=== PATIENT | male | born 1975 | race American Indian/Alaskan Native ===

== ENCOUNTER 2022-01-23 14:03 | Observation (INO) | payer MEDICARE, OTHER ==
[2022-01-23] MEDS ORDERED: levETIRAcetam 1000 MG/NS 0.75% 1,000 MG/100 ML BAG IV ONE (15:45)
[2022-01-23] MEDS ORDERED: MIDAZOLAM 2 MG/2 ML INJ IV ONE (15:45)
[2022-01-23] MEDS ORDERED: SODIUM CHLORIDE 0.9% 1000 ML IV SOLN IV ONE (15:45)
[2022-01-23] MEDS ORDERED: ACETAMINOPHEN 650 MG RECT SUPP PR PRN (15:47)
[2022-01-23] MEDS ORDERED: cefTRIAXone/NS 1 GM/50 ML 1 GM/50 ML BAG IV ONE (15:47)
[2022-01-23] MEDS ORDERED: ACETAMINOPHEN 650 MG RECT SUPP PR ONE (15:49)
--- NOTE | 2022-01-23 15:49 | Emergency Department Report ---
ED General Adult HPI - General Chief complaint: Seizure Stated complaint: SEIZURE Time Seen by Provider: 01/23/22 15:04 Source: EMS ( EMS documentation not available at time of chart dictation ), RN notes reviewed Mode of arrival: Stretcher Limitations: Other (Cerebral palsy. Poor historian) - History of Present Illness Initial comments: The patient was evaluated in the emergency department for symptoms described in the history of present illness. He/she was evaluated in the context of the global COVID-19 pandemic, which necessitated consideration that the patient might be at risk for infection with the virus that causes COVID-19. Institutional protocols and algorithms that pertain to the evaluation of patients at risk for COVID-19 are in a state of rapid change based on information released by regulatory bodies including the CDC and federal and state organizations. These policies and algorithms were followed during the patient's care in the emergency department. Please note that these policies, procedures and recommendations changed on a rapid basis. This is a 46-year-old gentleman. He reportedly has a history of cerebral palsy and seizures. He is reportedly brought to the hospital by EMS for possible seizures. Currently, friends and family not available at the bedside to give collateral information or additional history. The patient himself is awake, and making nonsensical sounds. He is noted to be moving his upper and lower extremities, but does have limited mobility in his upper and lower extremities, secondary to cerebral palsy. As per verbal report from nursing team, patient either missed medication for seizures, or prescription medications were not filled, and the patient may have had a seizure. The nature of the seizure, duration, and associated symptoms are not known because the patient cannot describe the symptoms. He is not accompanied by friends or family at this time for collateral information or additional history. I called up the listed phone number ([phone]) in the demographics to at tempt to obtain collateral information. Nobody answered, voicemail full, unable to leave voicemail for call back -: unknown Severity scale (0 -10): 0 - Related Data Allergies Allergy/AdvReac Type Severity Reaction Status Date / Time No Known Allergies Allergy Unverified 01/23/22 14:31 ED Review of Systems ROS: Stated complaint: SEIZURE Other details as noted in HPI Comment: Unobtainable due to pts medical conditions ED Past Medical Hx - Past Medical History Hx Seizures: Yes Additional medical history: cerebral palsy ED Physical Exam - General Limitations: Other (Patient is awake. Patient making nonsensical sounds and yelling) General appearance: anxious - Head Head exam: Present: atraumatic, normocephalic - Eye Eye exam: Present: normal appearance, EOMI - ENT ENT exam: Present: mucous membranes dry, normal external ear exam - Neck Neck exam: Present: normal inspection, full ROM. Absent: tenderness, meningismus - Respiratory Respiratory exam: Present: normal lung sounds bilaterally, decreased breath sounds. Absent: respiratory distress - Cardiovascular Cardiovascular Exam: Present: normal rhythm, tachycardia, normal heart sounds. Absent: bradycardia, irregular rhythm, systolic murmur, diastolic murmur, rubs, gallop - GI/Abdominal GI/Abdominal exam: Present: soft, normal bowel sounds. Absent: distended, tenderness, guarding, rebound, rigid, pulsatile mass - Rectal Rectal exam: Absent: normal inspection (Pressure ulcer noted) - exam: Present: normal inspection External exam: Present: normal external exam - Extremities Exam Extremities exam: Present: other (2+ pulses noted in the bilateral upper and lo wer extremities. There is no palpable cord. negative Homans sign. Muscular compartments are soft. The pelvis is stable.). Absent: normal inspection (Contractures noted in the bilateral upper and lower extremities), calf tenderness - Back Exam Back exam: Present: normal inspection. Absent: tenderness, CVA tenderness (R), CVA tenderness (L), paraspinal tenderness, vertebral tenderness - Neurological Exam Neurological exam: Present: altered, other (The patient is awake. EOMI. Making nonsensical sounds. Moving neck back and forth. The neck is supple. No obvious facial droop.) - Psychiatric Psychiatric exam: Present: anxious - Skin Skin exam: Present: warm, dry, intact, normal color. Absent: rash ED Course Vital Signs 01/23/22 01/23/22 01/23/22 14:25 15:07 15:16 Pulse Rate 155 H 147 H 147 H Respiratory 18 25 H 20 Rate Blood Pressure 142/90 Blood Pressure 118/66 [Left] O2 Sat by Pulse 98 96 Oximetry 01/23/22 01/23/22 01/23/22 15:30 16:00 16:30 Pulse Rate 144 H 129 H 113 H Respiratory 13 16 21 Rate Blood Pressure 142/90 142/90 122/88 Blood Pressure [Left] O2 Sat by Pulse 96 95 97 Oximetry 01/23/22 01/23/22 01/23/22 17:00 17:30 18:00 Pulse Rate 121 H 119 H 118 H Respiratory 21 26 H 22 Rate Blood Pressure 115/71 115/71 Blood Pressure [Left] O2 Sat by Pulse 96 99 88 Oximetry 01/23/22 18:35 Pulse Rate Respiratory Rate Blood Pressure Blood Pressure [Left] O2 Sat by Pulse 93 Oximetry - Reevaluation(s) Reevaluation #1: 01/23/22 16:38 Differential diagnosis, including but not limited to: Seizure, dehydration, pneumonia, UTI, electrolyte derangement, rhabdomyolysis COVID, influenza, Assessment and plan: 46-year-old gentleman, with low-grade temperature of 100.9 degrees, tachycardic, 119 to 150 bpm, after reportedly having had a seizure. The neck is supple with no meningeal signs. He is moving the neck back and forth. Called up listed phone number to obtain collateral information from family or friends, nobody answered, voicemail full, not able to leave voicemail for call back. Head of bed elevation aspiration precautions, n.p.o., rectal Tylenol, fluids, low empirically with ceftriaxone. Obtain noncontrast CT scan of the brain, and x-ray of the chest. Loaded with Keppra. Reassess. Low threshold to admit suspect that acute febrile illness likely secondary to report of seizure. 01/23/22 17:06 Tachycardia improved. Laboratory studies pending. Urinalysis pending. Apparently the department is out of influenza swabs. Currently awaiting flu swab delivery from our laboratory 01/23/22 18:47 No further seizures noted. Patient is awake and breathing spontaneously. CT scan brain reviewed by myself, do not appreciate any significant abnormalities. Urinalysis pending. Rapid strep pending. I will defer to inpatient team to follow this up. Endorsed to hospital physician, Dr. Jaxon Harrell Suspect that lactic acidosis is a probable type II lactic acidosis, likely secondary to seizure and dehydration. There are no meningeal signs ED Medical Decision Making - Lab Data Result diagrams: 01/23/22 16:02 01/23/22 16:02 Vital Signs 01/23/22 01/23/22 01/23/22 14:25 15:07 15:16 Pulse Rate 155 H 147 H 147 H Respiratory 18 25 H 20 Rate Blood Pressure 142/90 Blood Pressure 118/66 [Left] O2 Sat by Pulse 98 96 Oximetry 01/23/22 01/23/22 15:30 16:00 Pulse Rate 144 H 129 H Respiratory 13 16 Rate Blood Pressure 142/90 142/90 Blood Pressure [Left] O2 Sat by Pulse 96 95 Oximetry Rectal temperature 100.9 F - EKG Data -: EKG Interpreted by Nv Rate: tachycardia - EKG Data 01/23/22 16:35 The EKG is interpreted at 15: 10 Sinus rhythm, tachycardia, with a rate of 136 bpm. There is a normal axis, with a normal P wave axis, and high left ventricular voltage. There is motion artifact. There is poor R wave progression. The QTC is 4 9 4 ms. This is an abnormal EKG. This is not a STEMI - Radiology Data Radiology results: pending, report reviewed, image reviewed CHEST 1 VIEW 01/23/2022 3:55 PM INDICATION / CLINICAL INFORMATION: Seizure, tachycardia, low-grade fever. COMPARISON: None available. FINDINGS: SUPPORT DEVICES: None. HEART / MEDIASTINUM: No significant abnormality. LUNGS / PLEURA: No significant pulmonary or pleural abnormality. No pneumothorax. ADDITIONAL FINDINGS: No significant additional findings. IMPRESSION: 1. No acute findings. Signer Name: Matthieu Hernandez MD Signed: 01/23/2022 3:[address] BRAIN: 01/23/2022 INDICATION / CLINICAL INFORMATION: Seizure and cerebral palsy. COMPARISON: None available. FINDINGS: BRAIN/INTRACRANIAL STRUCTURES: Unenhanced CT images of the brain demonstrate no evidence of acute abnormality. Ventricles are slightly prominent in size, with somewhat irregular margins. This pattern can be seen in cases of chronic or remote white matter injury, and compatible with the provided history of cerebral palsy. There is no CT evidence of acute ischemic injury, hemorrhage, or mass. There are no abnormal extra- axial fluid collections. EXTRACRANIAL STRUCTURES: Unremarkable. IMPRESSION: No acute abnormality All CT scans at this location are performed using dose reduction to ALARA by means of automated exposure control. Signer Name: Mina Ponce MD Signed: 01/23/2022 6:42 PM Workstation Name: [id number] Critical care attestation.: If time is entered above; I have spent that time in minutes in the direct care of this critically ill patient, excluding procedure time. ED Disposition Clinical Impression: Cerebral palsy, Systemic inflammatory response syndrome (SIRS), Seizure, Dehydration, Hypokalemia Disposition: 09 ADMITTED INPATIENT Is pt being admited?: Yes Does the pt Need Aspirin: No Condition: Good Referrals: DEANA CRUZ MD [Primary Care Provider] - 3-5 Days
[2022-01-23] MEDS ORDERED: SODIUM CHLORIDE 0.9% 100 ML IVPB IV STA (16:00)
--- NOTE | 2022-01-23 16:16 | XRay Report ---
CHEST 1 VIEW 01/23/2022 3:55 PM INDICATION / CLINICAL INFORMATION: Seizure, tachycardia, low-grade fever. COMPARISON: None available. FINDINGS: SUPPORT DEVICES: None. HEART / MEDIASTINUM: No significant abnormality. LUNGS / PLEURA: No significant pulmonary or pleural abnormality. No pneumothorax. ADDITIONAL FINDINGS: No significant additional findings. IMPRESSION: 1. No acute findings. Signer Name: Matthieu Hernandez MD Signed: 01/23/2022 4:11 PM Workstation Name: [id number]
[2022-01-23 16:53] LABS: Basophils # (Auto) 0.1 K/mm3 (0.0-0.1); Basophils % (Auto) 0.5 % (0.0-1.8); Hematocrit 43.8 % (35.5-45.6); Hemoglobin 14.7 gm/dl (11.8-15.2); INR 0.97 (0.87-1.13); Lymphocytes # (Auto) 0.6 K/mm3 (1.2-5.4); Lymphocytes % (Auto) 5.5 % (13.4-35.0); Mean Corpuscular HGB Conc 34 % (32-34); Mean Corpuscular Volume 84 fl (84-94); Monocytes # (Auto) 0.5 K/mm3 (0.0-0.8); Monocytes % (Auto) 4.4 % (0.0-7.3); Partial Thromboplastin Time 27.1 Sec. (24.2-36.6); Platelet Count 290 K/mm3 (140-440); Red Blood Count 5.19 M/mm3 (3.65-5.03); Red Cell Distribution Width 13.8 % (13.2-15.2)
[2022-01-23 17:14] LABS: Alanine Aminotransferase 13 units/L (7-56); Albumin 4.8 g/dL (3.9-5); BUN/Creatinine Ratio 15; Blood Urea Nitrogen 12 mg/dL (9-20); Calcium 9.2 mg/dL (8.4-10.2); Hemolysis Index 18
--- NOTE | 2022-01-23 19:46 | Cat Scan Report ---
CT BRAIN: 01/23/2022 INDICATION / CLINICAL INFORMATION: Seizure and cerebral palsy. COMPARISON: None available. FINDINGS: BRAIN/INTRACRANIAL STRUCTURES: Unenhanced CT images of the brain demonstrate no evidence of acute abn ormality. Ventricles are slightly prominent in size, with somewhat irregular margins. This pattern can be seen in cases of chronic or remote white matter injury, and compatible with the provided history of cerebr al palsy. There is no CT evidence of acute ischemic injury, hemorrhage, or mass. There are no abnormal extra-ax ial fluid collections. EXTRACRANIAL STRUCTURES: Unremarkable. IMPRESSION: No acute abnormality All CT scans at this location are performed using dose reduction to ALARA by means of automated expos ure control. Signer Name: Mina Ponce MD Signed: 01/23/2022 7:42 PM Workstation Name: [id number]
[2022-01-23] MEDS ORDERED: ONDANSETRON 4 MG/2 ML INJ IV PRN (21:38)
[2022-01-23] MEDS ORDERED: ACETAMINOPHEN 325 MG TAB PO PRN (21:38)
[2022-01-23] MEDS ORDERED: oxyCODONE /ACETAMINOPHEN 5-325MG TAB PO PRN (21:43)
[2022-01-23] MEDS ORDERED: MORPHINE 2 MG/1 ML INJ IV PRN (21:43)
[2022-01-23] MEDS ORDERED: METOCLOPRAMIDE 10 MG/2 ML INJ IV PRN (21:43)
[2022-01-23] MEDS ORDERED: SODIUM CHLORIDE 0.9% 1000 ML 1,000 ML IV SCH (21:45)
--- NOTE | 2022-01-23 21:54 | History and Physical Report ---
History of Present Illness Date of examination: 01/23/22 Date of admission: 01/23/2022 Chief complaint: Seizures x2 History of present illness: 45-year-old -[place] male with history of seizure disorder and cerebral palsy brought in by EMS for seizures x2. No friends and family available for collateral information. Patient is awake but slightly altered. Moving all 4 extremities. Has contractures in both the feet. Patient apparently missed taking his Keppra and her prescriptions were not filled. Patient is not in status epilepticus. Intermittent seizures. No fever no fever or chills. past medical history --Seizure disorder --Cerebral palsy -surgical history family history -- Unavailable social history --unavailable Review of Systems ROS: Constitutional no weight loss or weight gain no fever or chills HEENT no sore throat no post nasal drip no diplopia Neck no neck stiffness no lymph gland enlargement Chest and lungs no shortness of breath cough or wheezing CVS no chest pain no diaphoresis no palpitations GI no nausea no vomiting no diarrhea Genitourinary system no dysuria no flank pain Musculoskeletal system no muscle pains no joint pains [employer] seizures x2 Skin no rash no itching Psychiatric no depression no homicidal or suicidal tendencies Hematologic no lymphedema or bruising Endocrine no polydipsia no polyuria no cold intolerance no heat intolerance Medications and Allergies Allergies Allergy/AdvReac Type Severity Reaction Status Date / Time No Known Allergies Allergy Unverified 01/23/22 14:31 Active Meds: Active Medications Acetaminophen (Acetaminophen 650 Mg Rect Supp) 650 mg KS Q4H PRN PRN Reason: Pain, Mild (1-3) Exam - Constitutional Vitals: Temp Pulse Resp BP Pulse Ox 118 H 22 115/71 93 01/23/22 18:00 01/23/22 18:00 01/23/22 18:00 01/23/22 18:35 General appearance: Present: no acute distress, well-nourished - EENT Eyes: Present: PERRL ENT: hearing intact, clear oral mucosa - Neck Neck: Present: supple, normal ROM - Respiratory Respiratory effort: normal Respiratory: bilateral: CTA - Cardiovascular Heart rate: 78 Rhythm: regular Heart Sounds: Present: S1 & S2. Absent: rub, click - Extremities Extremities: pulses symmetrical, No edema Peripheral Pulses: within normal limits - Abdominal General gastrointestinal: Present: soft, non-tender, non-distended, normal bowel sounds Male genitourinary: Present: normal - Integumentary Integumentary: Present: clear, warm, dry - Musculoskeletal Musculoskeletal: strength equal bilaterally, other (Slightly confused) - Psychiatric Psychiatric: appropriate mood/affect, cooperative, other (Slightly confused) - Neurologic Neurologic: CNII-XII intact, moves all extremities, other (Slightly confused andUnintelligible sounds) HEART Score - HEART Score Troponin: Troponin T < 0.010 ng/mL (0.00-0.029) 01/23/22 16:02 Results - Labs CBC & Chem 7: 01/23/22 16:02 01/23/22 16:02 Labs: Laboratory Last Values WBC 10.8 K/mm3 (4.5-11.0) 01/23/22 16: RBC 5.19 M/mm3 (3.65-5.03) H 01/23/22 16:02 Hgb 14.7 gm/dl (11.8-15.2) 01/23/22 16:02 Hct 43.8 % (35.5-45.6) 01/23/22 16:02 MCV 84 fl (84-94) 01/23/22 16:02 MCH 28 pg (28-32) 01/23/22 16:02 MCHC 34 % (32-34) 01/23/22 16:02 RDW 13.8 % (13.2-15.2) 01/23/22 16:02 Plt Count 290 K/mm3 (140-440) 01/23/22 16:02 Lymph % (Auto) 5.5 % (13.4-35.0) L 01/23/22 16:02 [place] % (Auto) 4.4 % (0.0-7.3) 01/23/22 16:02 Eos % (Auto) 0.0 % (0.0-4.3) 01/23/22 16:02 Baso % (Auto) 0.5 % (0.0-1.8) 01/23/22 16:02 Lymph # (Auto) 0.6 K/mm3 (1.2-5.4) L 01/23/22 16:02 [place] # (Auto) 0.5 K/mm3 (0.0-0.8) 01/23/22 16:02 Eos # (Auto) 0.0 K/mm3 (0.0-0.4) 01/23/22 16:02 Baso # (Auto) 0.1 K/mm3 (0.0-0.1) 01/23/22 16:02 Seg Neutrophils % 89.6 % (40.0-70.0) H 01/23/22 16:02 Seg Neutrophils # 9.6 K/mm3 (1.8-7.7) H 01/23/22 16:02 PT 14.2 Sec. (12.2-14.9) 01/23/22 16:02 INR 0.97 (0.87-1.13) 01/23/22 16:02 APTT 27.1 Sec. (24.2-36.6) 01/23/22 16:02 Sodium 135 mmol/L (137-145) L 01/23/22 16:02 Potassium 3.4 mmol/L (3.6-5.0) L 01/23/22 16:02 Chloride 97.6 mmol/L (98-107) L 01/23/22 16:02 Carbon Dioxide 21 mmol/L (22-30) L 01/23/22 16:02 Anion Gap 20 mmol/L 01/23/22 16:02 BUN 12 mg/dL (9-20) 01/23/22 16:02 Creatinine 0.8 mg/dL (0.8-1.3) 01/23/22 16:02 Estimated GFR > 60 ml/min 01/23/22 16:02 BUN/Creatinine Ratio 15 % 01/23/22 16:02 Glucose 159 mg/dL (75-100) H 01/23/22 16:02 Lactic Acid 1.40 mmol/L (0.7-2.0) 01/23/22 19:04 Calcium 9.2 mg/dL (8.4-10.2) 01/23/22 16:02 Total Bilirubin 0.70 mg/dL (0.1-1.2) 01/23/22 16:02 AST 24 units/L (5-40) 01/23/22 16:02 ALT 13 units/L (7-56) 01/23/22 16:02 Alkaline Phosphatase 49 units/L (35-129) 01/23/22 16:02 Total Creatine Kinase 469 units/L (55-170) H 01/23/22 16:02 Troponin T < 0.010 ng/mL (0.00-0.029) 01/23/22 16:02 Total Protein 7.9 g/dL (6.3-8.2) 01/23/22 16:02 Albumin 4.8 g/dL (3.9-5) 01/23/22 16:02 Albumin/Globulin Ratio 1.5 % 01/23/22 16:02 TSH 1.360 mlU/mL (0.270-4.200) 01/23/22 16:02 Free T4 1.18 ng/dL (0.76-1.46) 01/23/22 16:02 Influenza A (Rapid) Negative (Negative) 01/23/22 Unknown Influenza B (Rapid) Negative (Negative) 01/23/22 Unknown Short CBC 01/23/22 Range/Units 16:02 WBC 10.8 (4.5-11.0) K/mm3 Hgb 14.7 (11.8-15.2) gm/dl Hct 43.8 (35.5-45.6) % Plt Count 290 (140-440) K/mm3 BMP 01/23/22 16:02 Sodium 135 L Potassium 3.4 L Chloride 97.6 L Carbon Dioxide 21 L BUN 12 Creatinine 0.8 Glucose 159 H Calcium 9.2 Cardiac Enzymes 01/23/22 Range/Units 16:02 Total Creatine Kinase 469 H (55-170) units/L Troponin T < 0.010 (0.00-0.029) ng/mL Liver Function 01/23/22 Range/Units 16:02 Total Bilirubin 0.70 (0.1-1.2) mg/dL AST 24 (5-40) units/L ALT 13 (7-56) units/L Alkaline Phosphatase 49 (35-129) units/L Albumin 4.8 (3.9-5) g/dL - Imaging and Cardiology CT Scan - head: report reviewed Imaging and Cardiology: Chest x-ray No acute findings CT of the brain No acute abnormalities Assessment and Plan Advance Directives: Yes (Full code) VTE prophylaxis?: Chemical Plan of care discussed with patient/family: Yes - Patient Problems (1) Acute encephalopathy Current Visit: Yes Status: Acute Plan to address problem: Secondary to seizures Resolving (2) Seizure disorder Current Visit: Yes Status: Acute Plan to address problem: Patient initiated on IV Keppra Counseled about noncompliance (3) Cerebral palsy Current Visit: Yes Status: Acute Qualifiers: 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 We will discuss advance care planning again when there is a family member or patient is more alert and oriented
[2022-01-23] MEDS: HEPARIN 5,000 UNIT/1 ML VIAL SUB-Q SCH (22:52)
[2022-01-24] MEDS: FAMOTIDINE 20 MG TAB PO SCH ×4 (02:26→21:53)
[2022-01-24] MEDS: levETIRAcetam 750 MG in DEXTROSE 5% IN WATER 100 ML IV SCH ×2 (04:40→16:15)
[2022-01-24] MEDS ORDERED: POTASSIUM CHLORIDE ER 20 MEQ TAB PO ONE (06:29)
[2022-01-24] MEDS: POTASSIUM CHLORIDE 10 MEQ 10 MEQ/100 ML BAG IV SCH (06:44)
[2022-01-24] MEDS ORDERED: POTASSIUM CHLORIDE ER 20 MEQ TAB PO NR (07:30)
[2022-01-24] MEDS: HEPARIN 5,000 UNIT/1 ML VIAL SUB-Q SCH ×3 (08:25→21:53)
[2022-01-24 08:39] LABS: Alanine Aminotransferase 13 units/L (7-56); Albumin 4.3 g/dL (3.9-5); Blood Urea Nitrogen 11 mg/dL (9-20); Calcium 8.8 mg/dL (8.4-10.2); Hemolysis Index 9
[2022-01-24 08:41] LABS: BUN/Creatinine Ratio 18
[2022-01-24 08:44] LABS: Basophils % (Auto) 0.2 % (0.0-1.8); Hematocrit 43.2 % (35.5-45.6); Hemoglobin 14.3 gm/dl (11.8-15.2); Lymphocytes # (Auto) 0.9 K/mm3 (1.2-5.4); Lymphocytes % (Auto) 14.2 % (13.4-35.0); Mean Corpuscular HGB Conc 33 % (32-34); Mean Corpuscular Volume 87 fl (84-94); Monocytes # (Auto) 0.4 K/mm3 (0.0-0.8); Monocytes % (Auto) 7.2 % (0.0-7.3); Platelet Count 281 K/mm3 (140-440); Red Cell Distribution Width 14.1 % (13.2-15.2)
--- NOTE | 2022-01-24 15:32 | Progress Note ---
Assessment and Plan Assessment and plan: #Acute seizure disorder #Acute metabolic encephalopathyresolving Unremarkable CT head noncontrast Patient's brother denies any history of seizure disorder. Patient's mother (who is the primary guardian) has recently passed as of 3 weeks ago, and his brother is now his primary caregiver. Brother is relatively new to providing care for patient with cerebral palsy. Continue [facility] consulted; pending recs #Asymptomatic COVID-19 infection Remarkable coronavirus PCR on 01/24/2022. Ordering airborne and droplet precaution. No need to initiate steroids or remdesivir as the patient is saturating well on room air. Patient will require quarantine until 01/28/2022. #Cerebral palsy Continue supportive care. Patient requires assistance with feeding. #Hypokalemiaresolved Potassium 3.4 #Advanced care planning -Disease education conducted, care plan discussed, diagnoses discussed, prognosis discussed, and patient acknowledges understanding with care plan -Time: +30 min #Discharge planning - Patient is pending neurology evaluation - Case management has been made aware. - Discharge is tentatively 24 hours Disposition Plan: Continue medical management Total Time Spent with Patient (Minutes): 45 minutes History Interval history: No acute events overnight. Hospitalist Physical - Constitutional Vitals: Temp Pulse Resp BP Pulse Ox 99.2 F 80 19 135/77 100 01/24/22 04:49 01/24/22 04:49 01/24/22 05:38 01/24/22 04:49 01/24/22 05:38 General appearance: Present: no acute distress, well-nourished, other (Cerebral palsy at baseline; nonverbal) - EENT Eyes: Present: PERRL, EOM intact ENT: hearing intact, clear oral mucosa - Neck Neck: Present: supple, normal ROM - Respiratory Respiratory effort: normal Respiratory: bilateral: CTA - Cardiovascular Rhythm: regular Heart Sounds: Present: S1 & S2 - Extremities Extremities: no ischemia, pulses intact, pulses symmetrical, No edema, normal temperature, normal color, abnormal (Lower extremity contractures) Peripheral Pulses: within normal limits - Abdominal General gastrointestinal: soft, non-tender, non-distended, normal bowel sounds - Integumentary Integumentary: Present: clear, warm, dry - Psychiatric Psychiatric: other (Unable to assess given patient's cerebral palsy) - Neurologic Neurologic: moves all extremities - Allied Health Allied health notes reviewed: nursing HEART Score - HEART Score Troponin: Troponin T < 0.010 ng/mL (0.00-0.029) 01/23/22 16:02 Results - Labs CBC & Chem 7: 01/24/22 07:20 01/24/22 07:20 Labs: Laboratory Last Values WBC 6.2 K/mm3 (4.5-11.0) 01/24/22 07:20 RBC 5.00 M/mm3 (3.65-5.03) 01/24/22 07:20 Hgb 14.3 gm/dl (11.8-15.2) 01/24/22 07:20 Hct 43.2 % (35.5-45.6) 01/24/22 07:20 MCV 87 fl (84-94) 01/24/22 07:20 MCH 29 pg (28-32) 01/24/22 07:20 MCHC 33 % (32-34) 01/24/22 07:20 RDW 14.1 % (13.2-15.2) 01/24/22 07:20 Plt Count 281 K/mm3 (140-440) 01/24/22 07:20 Lymph % (Auto) 14.2 % (13.4-35.0) 01/24/22 07:20 [place] % (Auto) 7.2 % (0.0-7.3) 01/24/22 07:20 Eos % (Auto) 0.0 % (0.0-4.3) 01/24/22 07:20 Baso % (Auto) 0.2 % (0.0-1.8) 01/24/22 07:20 Lymph # (Auto) 0.9 K/mm3 (1.2-5.4) L 01/24/22 07:20 [place] # (Auto) 0.4 K/mm3 (0.0-0.8) 01/24/22 07:20 Eos # (Auto) 0.0 K/mm3 (0.0-0.4) 01/24/22 07:20 Baso # (Auto) 0.0 K/mm3 (0.0-0.1) 01/24/22 07:20 Seg Neutrophils % 78.4 % (40.0-70.0) H 01/24/22 07:20 Seg Neutrophils # 4.8 K/mm3 (1.8-7.7) 01/24/22 07:20 PT 14.2 Sec. (12.2-14.9) 01/23/22 16:02 INR 0.97 (0.87-1.13) 01/23/22 16:02 APTT 27.1 Sec. (24.2-36.6) 01/23/22 16:02 Sodium 138 mmol/L (137-145) 01/24/22 07:20 Potassium 4.0 mmol/L (3.6-5.0) 01/24/22 07:20 Chloride 103.6 mmol/L (98-107) 01/24/22 07:20 Carbon Dioxide 22 mmol/L (22-30) 01/24/22 07:20 Anion Gap 16 mmol/L 01/24/22 07:20 BUN 11 mg/dL (9-20) 01/24/22 07:20 Creatinine 0.6 mg/dL (0.8-1.3) L 01/24/22 07:20 Estimated GFR > 60 ml/min 01/24/22 07:20 BUN/Creatinine Ratio 18 % 01/24/22 07:20 Glucose 82 mg/dL (75-100) 01/24/22 07:20 Lactic Acid 1.40 mmol/L (0.7-2.0) 01/23/22 19:04 Calcium 8.8 mg/dL (8.4-10.2) 01/24/22 07:20 Total Bilirubin 0.70 mg/dL (0.1-1.2) 01/24/22 07:20 AST 33 units/L (5-40) 01/24/22 07:20 ALT 13 units/L (7-56) 01/24/22 07:20 Alkaline Phosphatase 44 units/L (35-129) 01/24/22 07:20 Total Creatine Kinase 469 units/L (55-170) H 01/23/22 16:02 Troponin T < 0.010 ng/mL (0.00-0.029) 01/23/22 16:02 Total Protein 7.3 g/dL (6.3-8.2) 01/24/22 07:20 Albumin 4.3 g/dL (3.9-5) 01/24/22 07:20 Albumin/Globulin Ratio 1.4 % 01/24/22 07:20 TSH 1.360 mlU/mL (0.270-4.200) 01/23/22 16:02 Free T4 1.18 ng/dL (0.76-1.46) 01/23/22 16:02 Coronavirus (PCR) Positive (Negative) A 01/24/22 08:15 Influenza A (Rapid) Negative (Negative) 01/23/22 Unknown Influenza B (Rapid) Negative (Negative) 01/23/22 Unknown Microbiology: Microbiology 01/23/22 16:02 Peripheral/Venous Blood Culture - Preliminary Culture in Progress 01/23/22 16:02 Peripheral/Venous Blood Culture - Preliminary Culture in Progress Kilpatrick/IV: Voiding Method Condom Catheter Active Medications - Current Medications Current Medications: Generic Name Dose Route Start Last Admin Trade Name Freq PRN Reason Stop Dose Admin Acetaminophen 650 mg 01/23/22 21:38 Acetaminophen 325 Mg Tab PO Q4H PRN Pain MILD(1-3)/Fever >100.5/CASTRO Famotidine 20 mg 01/23/22 22:00 01/24/22 12:10 Famotidine 20 Mg Tab PO Not Given BID [facility] Heparin Sodium (Porcine) 5,000 unit 01/23/22 22:00 01/24/22 12:09 Heparin 5,000 Unit/1 Ml Vial SUB-Q Not Given Q12HR [facility] Levetiracetam 750 mg/ Dextrose 107.5 mls @ 400 mls/hr 01/24/22 04:00 01/24/22 04:40 IV 400 mls/hr Q12H AKUA Administration Metoclopramide HCl 10 mg 01/23/22 21:43 Metoclopramide 10 Mg/2 Ml Inj IV Q6H PRN Nausea And Vomiting Morphine Sulfate 2 mg 01/23/22 21:43 Morphine 2 Mg/1 Ml Inj IV Q4H PRN Pain, Moderate (4-6) Ondansetron HCl 4 mg 01/23/22 21:38 Ondansetron 4 Mg/2 Ml Inj IV Q8H PRN Nausea And Vomiting Oxycodone/Acetaminophen 1 tab 01/23/22 21:43 Oxycodone /Acetaminophen 5-325mg Tab PO Q6H PRN Pain, Moderate (4-6) Sodium Chloride 10 ml 01/23/22 22:00 01/24/22 12:10 Sodium Chloride 0.9% 10 Ml Flush Syringe IV Not Given BID AKUA Sodium Chloride 10 ml 01/23/22 21:38 Sodium Chloride 0.9% 10 Ml Flush Syringe IV PRN PRN LINE FLUSH Nutrition/Malnutrition Assess - Dietary Evaluation Nutrition/Malnutrition Findings: Nutrition Notes Start: 01/24/22 14:58 Freq: Status: Active Protocol: Document 01/24/22 14:58 CM (Rec: 01/24/22 15:20 CM [id number]) Co-Sign 01/24/22 14:58 NHALL Nutrition Notes Need for 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 Weight Status Appropriate Subjective/Other Information RD consult for malnutrition risk score 2 assessment ( unsure wt loss / no decrease in appetite). Pt currently on COVID19 isolation during time of visit . Spoke with pt's brother who reported he is unsure of pt's UBW, but assures no wt loss or decreased appetite. Confirms pt has dry/flaky skin of LE and rashes on superficial rashes on sacrum. No rn lpn cna strength per physical assessment and integumentary findings consistent with family report. Per ADL note pt consumed 100% of breakfast and 75% lunch . Will assess need for nutrition focused physical assessment at follow-up. Burn Absent Trauma Absent GI Symptoms None Food Allergy No Skin Integrity/Comment Dry/flaky (No nayeli score) Current % PO Good (75-100%) Minimum of two criteria No Fluid Accumulation N/A Reduced Mysql Database Administrator Strength N/A (non-severe) Protein-Calorie Malnutrition N\A #1 Nutrition Diagnosis No nutrition diagnosis at this time As Evidenced by Signs and Symptoms PO intake 75-100% per physical assessment Is patient on ventilator? No Is Patient Ambulatory and/or Out of Bed No REE-([place] [facility]-confined to bed) [phone] Calculation Used for Recommendations [place] [facility] Additional Notes 1.0-1.2g/kg PRO (Cerebral Palsy) = 59-70g PRO q day Fluid needs: 1mL/kcal Nutrition Intervention Change Diet Order: Continue current diet order Goal #1 Pt to consume >75% of estimated energy/protein needs during LOS. Follow-Up By: 01/31/22 Additional Comments Monitor PO intake and evaluate need for nutrition-focused physical assessment at follow- up.
[2022-01-24 18:53] LABS: Mucus,Urine 3+ /HPF
[2022-01-24 18:57] LABS: Color,Urine Straw (Yellow)
[2022-01-25] MEDS: levETIRAcetam 750 MG in DEXTROSE 5% IN WATER 100 ML IV SCH (04:30)
--- NOTE | 2022-01-25 09:55 | Electrocardiograph Report ---
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
[2022-01-25] MEDS: FAMOTIDINE 20 MG TAB PO SCH ×2 (10:58→22:45)
[2022-01-25] MEDS: HEPARIN 5,000 UNIT/1 ML VIAL SUB-Q SCH ×2 (10:58→22:46)
[2022-01-25] MEDS ORDERED: levETIRAcetam 500 MG TAB PO SCH (12:00)
--- NOTE | 2022-01-25 12:01 | Progress Note ---
Assessment and Plan Assessment and plan: #Acute seizure disorder #Acute metabolic encephalopathyresolving Unremarkable CT head noncontrast Patient's brother denies any history of seizure disorder. Patient's mother (who is the primary guardian) has recently passed as of 3 weeks ago, and his brother is now his primary caregiver. Brother is relatively new to providing care for patient with cerebral palsy. Continue [facility] consulted; pending recs #Asymptomatic COVID-19 infection Remarkable coronavirus PCR on 01/24/2022. Ordering airborne and droplet precaution. No need to initiate steroids or remdesivir as the patient is saturating well on room air. Patient will require quarantine until 01/28/2022. #Cerebral palsy Continue supportive care. Patient requires assistance with feeding. #Hypokalemiaresolved Potassium 3.4 #Advanced care planning -Disease education conducted, care plan discussed, diagnoses discussed, prognosis discussed, and patient acknowledges understanding with care plan -Time: +30 min #Discharge planning - Patient is pending neurology evaluation - Case management has been made aware. - Discharge is tentatively 24 hours History Interval history: No acute events overnight per nursing. Patient able to tolerate oral medication. He appears to be comfortable at this time. Hospitalist Physical - Physical exam Narrative exam: GENERAL: Well-developed well-nourished. In no acute distress. HEENT: Normocephalic. Atraumatic. NECK: Supple. CHEST/LUNGS: CTAB on room air HEART/CARDIOVASCULAR: RRR. No murmur, rubs or gallops appreciated. ABDOMEN: +BS. NT/ND. SKIN: No rashes noted. NEURO: Unable to assess due to cerebral palsy. MUSCULOSKELETAL: No joint effusion. BUE contracted. EXTREMITIES: No cyanosis, clubbing or edema. PSYCH: Cooperative. Patient non verbal due to cerebral palsy - Constitutional Vitals: Temp Pulse Resp BP Pulse Ox 98.3 F 76 18 139/70 97 01/25/22 06:04 01/25/22 06:04 01/25/22 06:04 01/25/22 06:04 01/25/22 06:04 General appearance: Present: no acute distress, well-nourished, other (Cerebral palsy at baseline; nonverbal) HEART Score - HEART Score Troponin: Troponin T < 0.010 ng/mL (0.00-0.029) 01/23/22 16:02 Results - Labs CBC & Chem 7: 01/24/22 07:20 01/24/22 07:20 Labs: Laboratory Last Values WBC 6.2 K/mm3 (4.5-11.0) 01/24/22 07:20 RBC 5.00 M/mm3 (3.65-5.03) 01/24/22 07:20 Hgb 14.3 gm/dl (11.8-15.2) 01/24/22 07:20 Hct 43.2 % (35.5-45.6) 01/24/22 07:20 MCV 87 fl (84-94) 01/24/22 07:20 MCH 29 pg (28-32) 01/24/22 07:20 MCHC 33 % (32-34) 01/24/22 07:20 RDW 14.1 % (13.2-15.2) 01/24/22 07:20 Plt Count 281 K/mm3 (140-440) 01/24/22 07:20 Lymph % (Auto) 14.2 % (13.4-35.0) 01/24/22 07:20 [place] % (Auto) 7.2 % (0.0-7.3) 01/24/22 07:20 Eos % (Auto) 0.0 % (0.0-4.3) 01/24/22 07:20 Baso % (Auto) 0.2 % (0.0-1.8) 01/24/22 07:20 Lymph # (Auto) 0.9 K/mm3 (1.2-5.4) L 01/24/22 07:20 [place] # (Auto) 0.4 K/mm3 (0.0-0.8) 01/24/22 07:20 Eos # (Auto) 0.0 K/mm3 (0.0-0.4) 01/24/22 07:20 Baso # (Auto) 0.0 K/mm3 (0.0-0.1) 01/24/22 07:20 Seg Neutrophils % 78.4 % (40.0-70.0) H 01/24/22 07:20 Seg Neutrophils # 4.8 K/mm3 (1.8-7.7) 01/24/22 07:20 PT 14.2 Sec. (12.2-14.9) 01/23/22 16:02 INR 0.97 (0.87-1.13) 01/23/22 16:02 APTT 27.1 Sec. (24.2-36.6) 01/23/22 16:02 Sodium 138 mmol/L (137-145) 01/24/22 07:20 Potassium 4.0 mmol/L (3.6-5.0) 01/24/22 07:20 Chloride 103.6 mmol/L (98-107) 01/24/22 07:20 Carbon Dioxide 22 mmol/L (22-30) 01/24/22 07:20 Anion Gap 16 mmol/L 01/24/22 07:20 BUN 11 mg/dL (9-20) 01/24/22 07:20 Creatinine 0.6 mg/dL (0.8-1.3) L 01/24/22 07:20 Estimated GFR > 60 ml/min 01/24/22 07:20 BUN/Creatinine Ratio 18 % 01/24/22 07:20 Glucose 82 mg/dL (75-100) 01/24/22 07:20 Lactic Acid 1.40 mmol/L (0.7-2.0) 01/23/22 19:04 Calcium 8.8 mg/dL (8.4-10.2) 01/24/22 07:20 Total Bilirubin 0.70 mg/dL (0.1-1.2) 01/24/22 07:20 AST 33 units/L (5-40) 01/24/22 07:20 ALT 13 units/L (7-56) 01/24/22 07:20 Alkaline Phosphatase 44 units/L (35-129) 01/24/22 07:20 Total Creatine Kinase 469 units/L (55-170) H 01/23/22 16:02 Troponin T < 0.010 ng/mL (0.00-0.029) 01/23/22 16:02 Total Protein 7.3 g/dL (6.3-8.2) 01/24/22 07:20 Albumin 4.3 g/dL (3.9-5) 01/24/22 07:20 Albumin/Globulin Ratio 1.4 % 01/24/22 07:20 TSH 1.360 mlU/mL (0.270-4.200) 01/23/22 16:02 Free T4 1.18 ng/dL (0.76-1.46) 01/23/22 16:02 Urine Color Straw (Yellow) 01/24/22 17:57 Urine Turbidity Slightly cloudy (Clear) 01/24/22 17:57 Specific [place] (Man) 1.015 (1.003-1.030) 01/24/22 17:57 Ur Protein (Man) Negative mg/dL (Negative) 01/24/22 17:57 Ur Ketones (Man) Negative (Negative) 01/24/22 17:57 Ur Nitrite (Man) Negative (Negative) 01/24/22 17:57 Ur Reducing Substances Not Reportable 01/24/22 17:57 Urine Bilirubin (Man) Negative (Negative) 01/24/22 17:57 Urine Ictotest Not Reportable 01/24/22 17:57 Leukocyte Esterase (Man) Negative (Negative) 01/24/22 17:57 Urine WBC (Auto) 1.0 /HPF (0.0-6.0) 01/24/22 17:57 Urine RBC (Auto) 1.0 /HPF (0.0-6.0) 01/24/22 17:57 U Epithel Cells (Auto) < 1.0 /HPF (0-13.0) 01/24/22 17:57 Urine RBC (Manual) Negative (Negative) 01/24/22 17:57 Urine Mucus 3+ /HPF 01/24/22 17:57 Coronavirus (PCR) Positive (Negative) A 01/24/22 08:15 Influenza A (Rapid) Negative (Negative) 01/23/22 Unknown Influenza B (Rapid) Negative (Negative) 01/23/22 Unknown Microbiology: Microbiology 01/23/22 16:02 Peripheral/Venous Blood Culture - Preliminary NO GROWTH AFTER 24 HOURS 01/23/22 16:02 Peripheral/Venous Blood Culture - Preliminary NO GROWTH AFTER 24 HOURS Kilpatrick/IV: Voiding Method Indwelling Catheter Active Medications - Current Medications Current Medications: Generic Name Dose Route Start Last Admin Trade Name Freq PRN Reason Stop Dose Admin Acetaminophen 650 mg 01/23/22 21:38 Acetaminophen 325 Mg Tab PO Q4H PRN Pain MILD(1-3)/Fever >100.5/CASTRO Famotidine 20 mg 01/23/22 22:00 01/25/22 10:58 Famotidine 20 Mg Tab PO 20 mg BID AKUA Administration Heparin Sodium (Porcine) 5,000 unit 01/23/22 22:00 01/25/22 10:58 Heparin 5,000 Unit/1 Ml Vial SUB-Q 5,000 unit Q12HR AKUA Administration Levetiracetam 750 mg 01/25/22 12:00 Levetiracetam 500 Mg/5 Ml Oral Liqd PO BID AKUA Metoclopramide HCl 10 mg 01/23/22 21:43 Metoclopramide 10 Mg/2 Ml Inj IV Q6H PRN Nausea And Vomiting Morphine Sulfate 2 mg 01/23/22 21:43 Morphine 2 Mg/1 Ml Inj IV Q4H PRN Pain, Moderate (4-6) Ondansetron HCl 4 mg 01/23/22 21:38 Ondansetron 4 Mg/2 Ml Inj IV Q8H PRN Nausea And Vomiting Oxycodone/Acetaminophen 1 tab 01/23/22 21:43 Oxycodone /Acetaminophen 5-325mg Tab PO Q6H PRN Pain, Moderate (4-6) Sodium Chloride 10 ml 01/23/22 22:00 01/25/22 11:01 Sodium Chloride 0.9% 10 Ml Flush Syringe IV 10 ml BID AKUA Administration Sodium Chloride 10 ml 01/23/22 21:38 Sodium Chloride 0.9% 10 Ml Flush Syringe IV PRN PRN LINE FLUSH Nutrition/Malnutrition Assess - Dietary Evaluation Nutrition/Malnutrition Findings: Nutrition Notes Start: 01/24/22 14:58 Freq: Status: Active Protocol: Document 01/24/22 14:58 CM (Rec: 01/24/22 15:20 CM [id number]) Co-Sign 01/24/22 14:58 NHALL Nutrition Notes Need for Assessment generated from: digital editor Initial or Follow up Assessment Other Pertinent Diagnosis AMS, seizure, cerebral palsy Current Diet Regular Diet Labs/Tests Cr 0.6 Pertinent Medications Reviewed Height 5 ft 6 in Weight 58.513 kg [place] Body Weight (kg) 64.54 BMI 20.8 Intake Prior to Admission Good Weight change and time frame 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 Weight Status Appropriate Subjective/Other Information RD consult for malnutrition risk score 2 assessment ( unsure wt loss / no decrease in appetite). Pt currently on COVID19 isolation during time of visit . Spoke with pt's brother who reported he is unsure of pt's UBW, but assures no wt loss or decreased appetite. Confirms pt has dry/flaky skin of LE and rashes on superficial rashes on sacrum. No instructional developer strength per physical assessment and integumentary findings consistent with family report. Per ADL note pt consumed 100% of breakfast and 75% lunch . Will assess need for nutrition focused physical assessment at follow-up. Burn Absent Trauma Absent GI Symptoms None Food Allergy No Skin Integrity/Comment Dry/flaky (No nayeli score) Current % PO Good (75-100%) Minimum of two criteria No Fluid Accumulation N/A Reduced Director Of Marketing Strength N/A (non-severe) Protein-Calorie Malnutrition N\A #1 Nutrition Diagnosis No nutrition diagnosis at this time As Evidenced by Signs and Symptoms PO intake 75-100% per physical assessment Is patient on ventilator? No Is Patient Ambulatory and/or Out of Bed No REE-([facility]-confined to bed) 1869.068 [facility]culation [facility] Additional Notes 1.0-1.2g/kg PRO (Cerebral Palsy) = 59-70g PRO q day Fluid needs: 1mL/kcal Nutrition Intervention Change Diet Order: Continue current diet order Goal #1 Pt to consume >75% of estimated energy/protein needs during LOS. Follow-Up By: 01/31/22 Additional Comments Monitor PO intake and evaluate need for nutrition-focused physical assessment at follow- up.
[2022-01-25] MEDS: levETIRAcetam 500 MG/5 ML ORAL LIQD PO SCH ×2 (14:40→22:45)
--- NOTE | 2022-01-26 08:27 | Discharge Summary ---
Providers - Providers Date of Admission: 01/23/22 21:39 Date of discharge: 01/26/22 Attending physician: MICKY NAVA MD 01/25/22 08:04 Consult to Physician [CONS] Routine Comment: Consulting Provider: TRISHA PHILIP Physician Instructions: Reason For Exam: new onset seizure Primary care physician: DEANA CRUZ Hospitalization Reason for admission: seizures Condition: Good Hospital course: Patient is a 45-year-old male with a history of seizure disorder and cerebral palsy who was admitted for seizure due to missing Keppra doses. CT of the head was negative for acute abnormalities. Patient was restarted on Keppra and observed to be seizure-free afterward. Once clinically stable, he was discharged home with his brother and instructions to follow-up with Neurology. Disposition: 01 HOME / SELF CARE / HOMELESS Final Discharge Diagnosis (Prints w/discharge instructions): Acute on chronic seizure disorder. Acute metabolic encephalopathy. Asymptomatic COVID-19 infection. Cerebral palsy. Hypokalemia Time spent for discharge: 40 minutes Core Measure Documentation - Palliative Care Palliative Care/ Comfort Measures: Not Applicable - Core Measures Any of the following diagnoses?: none Exam - Physical Exam Narrative exam: GENERAL: Well-developed well-nourished. In no acute distress. HEENT: Normocephalic. Atraumatic. NECK: Supple. CHEST/LUNGS: CTAB on room air HEART/CARDIOVASCULAR: RRR. No murmur, rubs or gallops appreciated. ABDOMEN: +BS. NT/ND. SKIN: No rashes noted. NEURO: Unable to assess due to cerebral palsy. MUSCULOSKELETAL: No joint effusion. BUE contracted. EXTREMITIES: No cyanosis, clubbing or edema. PSYCH: Cooperative. Patient non verbal due to cerebral palsy - Constitutional Vitals: Temp Pulse Resp BP Pulse Ox 99.6 F 57 L 24 140/80 98 01/25/22 16:56 01/25/22 16:56 01/25/22 16:56 01/25/22 16:56 01/26/22 05:00 Plan Care Plan Goals: Please follow-up with your primary care provider and neurologist. The number for the Neurologist Dr. Philip is included. Please take all medications as they are prescribed. Follow up with: DEANA CRUZ MD [Primary Care Provider] - 3-5 Days TRISHA PHILIP MD [Staff Physician] - 7 Days Prescriptions: QUEtiapine [SEROquel] 25 mg PO QHS #30 tab levETIRAcetam [Keppra TAB] 750 mg PO BID #60 tab LORazepam [Lorazepam] 2 mg PO TID #90 mg QUEtiapine [SEROquel] 100 mg PO QAM #30 tab
[2022-01-26 11:51] VITALS: BP 139/82
[2022-01-26] MEDS: FAMOTIDINE 20 MG TAB PO SCH (13:52)
[2022-01-26] MEDS: levETIRAcetam 500 MG/5 ML ORAL LIQD PO SCH (13:53)
[2022-01-26] MEDS: HEPARIN 5,000 UNIT/1 ML VIAL SUB-Q SCH (13:53)
== END 2022-01-26 14:39 | disposition home or self-care (01) ==
LOC: ED 14:03 → 3A 21:39 → INTOOBSV 21:39 → 3A 23:09
PROVIDERS: ADMIT Internal Medicine; ATTEND Student in an Organized Health Care Education/Training Program
DX: U07.1 COVID-19 (principal); R65.10 Systemic inflammatory response syndrome (SIRS) of non-infectious origin without acute organ dysfunction; G93.40 Encephalopathy, unspecified; G40.909 Epilepsy, unspecified, not intractable, without status epilepticus; G80.9 Cerebral palsy, unspecified; E87.6 Hypokalemia; E86.0 Dehydration; Z91.19 Patient's noncompliance with other medical treatment and regimen; Z79.899 Other long term (current) drug therapy
CPT/HCPCS: 36415; 70450; 71045; 80053; 81001; 82140; 82550; 82962; 84439; 84443; 84484; 85025; 85610; 85730; 87040; 87400; 93005; 96361; 96365; 96366; 96367; 96372; 96375; 96376; 99285; G0378; J0696; J1644; J1953; J2250; J3480; J7030; J7060; U0003; 96374